=== PATIENT | female | born 1950 | race African-American/Black ===

== ENCOUNTER 2023-02-01 15:17 | Emergency (ER) | payer OTHER ==
[~2023-02-01] VITALS: Ht 167.6 cm; Wt 61.0 kg
[2023-02-01 15:23] VITALS: BP 135/73
[2023-02-01 18:47] LABS: BASOPHILS % 0.4 % (0.0-2.0); EOSINOPHILS % 0.1 % (0.0-5.0); HEMATOCRIT. 37.6 % (36.0-48.0); HEMOGLOBIN. 12.8 g/dL (12.0-16.0); LYMPHOCYTES % 18.6 % (20.0-50.0); MEAN CORPUSCULAR HEMOGLOBIN 31.2 pg (28.0-32.0); MEAN CORPUSCULAR VOLUME 91.8 fL (81.0-99.0); MEAN PLATELET VOLUME 8.3 fl (7.4-10.4); MONOCYTES % 7.7 % (2.0-8.0); NEUTROPHILS % 73.2 % (40.0-76.0); PLATELET 204 x1000/uL (130-400); RED CELL DISTRIBUTION WIDTH 13.7 % (11.6-14.6)
[2023-02-01 18:56] LABS: CHLORIDE 106 mEq/L (98-107)
== END 2023-02-01 19:40 | disposition home or self-care (01) ==
LOC: ER 15:17
DX: R07.9 Chest pain, unspecified (principal); R63.4 Abnormal weight loss; Z68.21 Body mass index [BMI] 21.0-21.9, adult; Z98.890 Other specified postprocedural states
CPT/HCPCS: 36415; 71045; 80053; 84484; 85025; 93005; 99285